=== PATIENT | male | born 1945 | race Caucasian/White ===

== ENCOUNTER 2017-10-06 12:34 | Outpatient (CLI) | payer MEDICARE | END 2017-10-06 12:35 | disposition home or self-care (01) | LOC: DI 12:34 | PROVIDERS: ATTEND Internal Medicine Cardiovascular Disease | DX: I42.8 Other cardiomyopathies (principal); I11.9 Hypertensive heart disease without heart failure; I49.3 Ventricular premature depolarization | CPT/HCPCS: 93306 ==

== ENCOUNTER 2017-12-21 10:39 | Outpatient (CLI) | payer MEDICARE ==
[2017-12-21] MEDS ORDERED: REGADENOSON 0.4 MG/5 ML SYRINGE IVP ONE ×2 (11:29→16:01)
--- NOTE | 2017-12-21 16:28 | Nuclear Medicine Report ---
Procedure Date: 12/21/2017 Accession Number: [id number] / [id number] Procedure: NM - Myocardial Perfusion STR/RST CPT Code: FULL RESULT: EXAM: SINGLE-ISOTOPE PHARMACOLOGICAL STRESS TEST WITH REGADENOSON. SINGLE-ISOTOPE AND ONE-DAY REST/STRESS MYOCARDIAL PERFUSION SCANS WITH TOMOGRAPHIC IMAGING, QUANTITATIVE ANALYSIS, WALL MOTION ANALYSIS AND CALCULATION OF EJECTION FRACTION. EXAM DATE: 12/21/2017 04:02 PM. CLINICAL HISTORY: HEART FAILURE. COMPARISON: None. TECHNIQUE: After the intravenous administration of 10.2 mCi of Tc-99m sestamibi, a rest myocardial perfusion scan was done with tomography. Motion correction was applied when appropriate. After an appropriate delay, pharmacological stress was performed with the infusion of 0.4 mg regadenoson per protocol. According to protocol, 41.6 mCi of Tc-99m sestamibi was injected for stress myocardial perfusion scan. Motion correction was applied when appropriate. Gated tomographic images were obtained for wall motion analysis and computation of left ventricular ejection fraction. EKG reported separately FINDINGS: There is a moderate to severe partially fixed and partially reversible lateral wall perfusion defect. There is a smaller moderate severity fixed distal inferior wall defect. Computer analysis: Summed stress score 5 Sound rest score 2 Summed difference score 3 Wall motion analysis demonstrates relatively diffuse hypokinesis. The left ventricular end-diastolic volume is 159 cc. The left ventricular end-systolic volume is 105 cc. The left ventricular ejection fraction is calculated to be 34%. IMPRESSION: 1. Partially fixed and partially reversible lateral wall perfusion defect. Smaller fixed distal inferior wall perfusion defect. 2. Left ventricular ejection fraction of 34%. 3. Relatively diffuse hypokinesis. 4. Normal left ventricular cavity size, no change with stress. 5. Based on computer analysis, mildly abnormal study with mild ischemia. RADIA
--- NOTE | 2017-12-21 17:58 | CARDIAC PROCEDURE NOTE ---
DATE OF SERVICE: 12/21/2017 Physician: RAINER Mcrae PRIMARY CARE PROVIDER: RAINER Deal PRODUCT MANAGEMENT SPECIALIST: Husam Mtz M.D. PROCEDURE: Pharmacologic cardiac stress test. PROCEDURES SYMPTOMS: Exertional fatigue. CARDIAC RISK FACTORS: Age, diabetes, and hypertension. PREVIOUS CARDIAC PROCEDURES: Coronary angiogram in 2005. CLINICAL HISTORY: A 72-year-old male without known coronary artery disease. There were no medicatio ns held. INITIAL RESTING VITAL SIGNS: BP 142/72, heart rate 81, height 69 inches, weight 230 pounds, BMI 33.9 6. PROCEDURE AND FINDINGS: Patient's identity and date verified. Consent signed. Pharmaceutical checked. Pharmacologic stress testing was performed with Lexiscan at a dose of 0.4 mg over 10 seconds. Heart rate increased to 110 beats per minute from the infusion. Blood pressure response was normal, peakin g at 150/64 during the stress procedure. The patient developed mild infusion-related symptoms, which included shortness of air and eye pressure. These resolved spontaneously. The resting ECG demonstr ated normal sinus rhythm with no ST or T-wave changes. Maximum ST segment depression with stress was 0. There was PVC ectopy including single, couplets, and triplet PVCs. FINAL IMPRESSION 1. Negative electrocardiogram for ischemia in the setting of vasodilator stress. 2. Nondiagnostic stress test for angina. 3. Occasional couplets and triplets during the exercise phase. 4. Await myocardial perfusion report. TD: 12/21/2017 14:30
[2017-12-25 17:18] VITALS: BP 142/72
== END 2017-12-21 10:40 | disposition home or self-care (01) ==
LOC: DI 10:39
PROVIDERS: ATTEND Internal Medicine Cardiovascular Disease
DX: I50.9 Heart failure, unspecified (principal)
CPT/HCPCS: 78452; 93017; A9500; J2785

== ENCOUNTER 2022-06-22 16:57 | Outpatient (CLI) | payer MEDICARE ==
--- NOTE | 2022-06-23 11:14 | MRI Report ---
PROCEDURE: MRI lumbar spine without contrast INDICATIONS: LUMBAR RADICULOPATHY TECHNIQUE: Noncontrast sagittal T1 spin echo and T2 fast echo, sagittal STIR, axial T1 and T2 fast spin echo thr ough the lumbar spine. In cases with scoliosis, additional coronal T2 fast spin echo may be performe d. COMPARISON: None. FINDINGS: Image quality: Excellent. Alignment and Curvature: There is normal bony alignment. Bone Marrow: Chronic degenerative endplate changes noted Spinal Cord: Conus medullaris terminates at the L1 level. Visualized cord demonstrates normal signa l and size. Paraspinous Soft Tissues: No paravertebral masses. T12-L1: Displaced cervical disc bulge and hypertrophic facet joints results in mild central stenosis . No foraminal stenosis L1-L2: Disc space narrowing with circumferential disc bulge results in mild central without forami nal stenosis L2-L3: Disc space narrowing and cervical disc bulge with hypertrophic facet joints results in mode rate central stenosis. High intensity zone in the left lateral annulus reflects annular fissure or te ar. Moderate left and right foraminal stenosis L3-L4: Disc space narrowing and circumferential disc bulge present. Mild central stenosis. Mild benedicto ateral foraminal stenosis L4-L5: Disc space narrowing with circumferential disc bulge and hypertrophic facet joints present. Small paracentral left disc protrusion with inferior migration noted. Mild central stenosis. Moderate right and mild left foraminal stenosis L5-S1: Disc space narrowing with asymmetric left disc bulge effaces the left lateral recess. Modera te left and right foraminal stenosis IMPRESSION: 1. Multilevel degenerative disc disease and arthropathy results in varying degrees of central and for aminal stenosis including moderate central stenosis L2-3 and moderate left foraminal stenosis L4-5 an d L5-S1. 2. Small paracentral left disc protrusion with inferior migration at L4-5. 3. L2-3 probable annular fissure or tear Reviewed by: Anthony Yee MD on 06/23/2022 10:13 AM [facility] Approved by: Anthony Yee MD on 06/23/2022 10:13 AM [facility] Station ID: [id number]
== END 2022-06-22 16:58 | disposition home or self-care (01) ==
LOC: DI 16:57
PROVIDERS: ATTEND Registered Nurse
DX: M51.16 Intervertebral disc disorders with radiculopathy, lumbar region (principal); M48.061 Spinal stenosis, lumbar region without neurogenic claudication; M51.17 Intervertebral disc disorders with radiculopathy, lumbosacral region; M48.07 Spinal stenosis, lumbosacral region

== ENCOUNTER 2022-07-26 14:26 | Outpatient (CLI) | payer MEDICARE ==
--- NOTE | 2022-07-26 20:48 | XRAY Report ---
PROCEDURE: Hip 2 View LT INDICATIONS: LEFT HIP PAIN TECHNIQUE: 2 views of the hip were acquired. COMPARISON: CT abdomen pelvis 07/06/2015 FINDINGS: Bones: No acute fractures or dislocations. Severe degenerative changes of the left hip with severe j oint space loss, subchondral sclerosis, subchondral cystic change. Mild right hip degenerative change s also present. Soft tissues: No suspicious soft tissue calcifications or masses. IMPRESSION: Severe degenerative changes of the left hip. Reviewed by: Manny Pedro MD on 07/26/2022 8:47 PM PDT Approved by: Manny Pedro MD on 07/26/2022 8:47 PM PDT Station ID: [id number]
== END 2022-07-26 14:27 | disposition home or self-care (01) ==
LOC: DI.WOS 14:26
PROVIDERS: ATTEND Physician Assistant Surgical
DX: M16.12 Unilateral primary osteoarthritis, left hip (principal)

== ENCOUNTER 2022-12-07 14:58 | Outpatient (CLI) | payer MEDICARE | END 2022-12-07 14:59 | disposition home or self-care (01) | LOC: DI 14:58 | PROVIDERS: ATTEND Internal Medicine Cardiovascular Disease | DX: I08.1 Rheumatic disorders of both mitral and tricuspid valves (principal); I87.8 Other specified disorders of veins | CPT/HCPCS: 93306 ==

== ENCOUNTER 2023-08-11 08:00 | Outpatient (CLI) | payer MEDICARE | END 2023-08-11 23:59 | disposition home or self-care (01) | LOC: PC 08:00 | PROVIDERS: ATTEND Nurse Practitioner Gerontology | DX: Z51.5 Encounter for palliative care (principal); M16.12 Unilateral primary osteoarthritis, left hip; G47.11 Idiopathic hypersomnia with long sleep time; R06.00 Dyspnea, unspecified; E11.9 Type 2 diabetes mellitus without complications; Z79.4 Long term (current) use of insulin | CPT/HCPCS: 99349 ==

== ENCOUNTER 2023-09-29 08:00 | Outpatient (CLI) | payer MEDICARE | END 2023-09-29 23:59 | disposition home or self-care (01) | LOC: PC 08:00 | PROVIDERS: ATTEND Nurse Practitioner Gerontology | DX: Z51.5 Encounter for palliative care (principal); E11.9 Type 2 diabetes mellitus without complications; E66.01 Morbid (severe) obesity due to excess calories; R60.0 Localized edema; M16.12 Unilateral primary osteoarthritis, left hip; M25.552 Pain in left hip; G62.9 Polyneuropathy, unspecified; Z66 Do not resuscitate; Z79.4 Long term (current) use of insulin; Z79.85 Long-term (current) use of injectable non-insulin antidiabetic drugs; Z91.85 Personal history of military service; Z79.899 Other long term (current) drug therapy | CPT/HCPCS: 99349 ==

== ENCOUNTER 2023-11-27 08:00 | Outpatient (CLI) | payer MEDICARE | END 2023-11-27 23:59 | disposition home or self-care (01) | LOC: PC 08:00 | PROVIDERS: ATTEND Nurse Practitioner Gerontology | DX: Z51.5 Encounter for palliative care (principal); E11.319 Type 2 diabetes mellitus with unspecified diabetic retinopathy without macular edema; E11.40 Type 2 diabetes mellitus with diabetic neuropathy, unspecified; E11.21 Type 2 diabetes mellitus with diabetic nephropathy; I25.10 Atherosclerotic heart disease of native coronary artery without angina pectoris; I11.0 Hypertensive heart disease with heart failure; I50.9 Heart failure, unspecified; I42.8 Other cardiomyopathies; Z79.4 Long term (current) use of insulin; Z79.84 Long term (current) use of oral hypoglycemic drugs | CPT/HCPCS: 99350 ==

== ENCOUNTER 2023-12-13 08:00 | Outpatient (CLI) | payer MEDICARE | END 2023-12-13 23:29 | disposition home or self-care (01) | LOC: PC 08:00 | PROVIDERS: ATTEND Nurse Practitioner Gerontology | DX: Z51.5 Encounter for palliative care (principal); I42.0 Dilated cardiomyopathy | CPT/HCPCS: 99426 ==